=== PATIENT | female | born 1960 | race African-American/Black ===

== ENCOUNTER 2017-06-26 18:10 | Emergency (ER) | payer BC ==
[~2017-06-26] VITALS: Ht 165.1 cm; Wt 102.1 kg
[2017-06-26] MEDS ORDERED: ACETAMINOPHEN 500 MG TABLET PO ONE (19:15)
[2017-06-26] MEDS ORDERED: IV NORMAL SALINE 1000ML BAG 1,000 ML IV ONE (19:15)
[2017-06-26 19:44] LABS: BASO # 0.1 x10^3/uL (0.0-0.2); BASO % 1 % (0-3); EOS % 0 % (0-3); HEMATOCRIT 40.2 % (36.0-47.0); HEMOGLOBIN 13.5 g/dL (12.0-15.5); LYMPH # 0.9 x10^3/uL (1.0-4.8); LYMPH % 9 % (24-48); MEAN CORPUSCULAR HEMOGLOBIN 29 pg (25-35); MEAN CORPUSCULAR HGB CONC 34 g/dL (31-37); MEAN CORPUSCULAR VOLUME 85 fL (79-100); MONO % 8 % (0-9); NEUT % 83 % (31-73); PLATELET COUNT 313 x10^3/uL (140-400); RED BLOOD COUNT 4.73 x10^6/uL (3.50-5.40); RED CELL DISTRIBUTION WIDTH 14.7 % (11.5-14.5); WHITE BLOOD COUNT 9.5 x10^3/uL (4.0-11.0)
--- NOTE | 2017-06-26 19:51 | PHYS DOC ---
Past Medical History Past Medical History: No Pertinent History Past Surgical History: Hysterectomy Alcohol Use: Occasionally Drug Use: None Adult General Chief Complaint Chief Complaint: FEVER HPI HPI Patient is a 57 year old female who presents with 2 days of multiple loose watery stools, states any time she takes anything by mouth she'll stool. She gets crampy abdominal pain relieved with each bowel movements. She denies any recent antibiotics. Patient arrives with a fever, she took ibuprofen yesterday. She is tolerating fluids without difficulty other than it goes straight through her. She denies any nausea or vomiting, no chest pain or cough. Pt is otherwise healthy Review of Systems Review of Systems Constitutional: Denies fever or chills [] Eyes: Denies change in visual acuity, redness, or eye pain [] HENT: Denies nasal congestion or sore throat [] Respiratory: Denies cough or shortness of breath [] Cardiovascular: Denies chest pain GI: per hpi, denies blood in stool : Denies dysuria or hematuria [] Musculoskeletal: Denies back pain or joint pain [] Integument: Denies rash or skin lesions [] Neurologic: Denies headache, focal weakness or sensory changes [] Current Medications Current Medications Current Medications Medications (Trade) Dose Ordered Sig/Danny Start Time Stop Time Status Last Admin Dose Admin Acetaminophen (Tylenol) 1,000 mg 1X ONCE 06/26/17 19:15 06/26/17 19:18 DC 06/26/17 19:49 1,000 MG Loperamide HCl (Imodium) 4 mg 1X ONCE 06/26/17 21:00 06/26/17 21:03 DC 06/26/17 21:00 4 MG Sodium Chloride 1,000 ml @ 1,000 mls/hr 1X ONCE 06/26/17 19:15 06/26/17 20:14 DC 06/26/17 19:15 1,000 MLS/HR Allergies Allergies Allergies Coded Allergies Type Severity Reaction Last Updated Verified No Known Drug Allergies 06/26/17 No Physical Exam Physical Exam Constitutional: Well developed, well nourished, no acute distress, non-toxic appearance. [] HENT: Normocephalic, atraumatic, bilateral external ears normal, oropharynx moist, no oral exudates, nose normal. [] Eyes: PERRLA, EOMI, conjunctiva normal, no discharge. [] Neck: Normal range of motion, no tenderness, supple, no stridor. [] Cardiovascular:Heart rate tachy with regular rhythm, no murmur [] Lungs & Thorax: Bilateral breath sounds clear to auscultation , no wheeze, crackles or rhonchi Abdomen: Bowel sounds normal, soft, no tenderness, no masses, no pulsatile masses. no distention Skin: Warm, dry, no erythema, no rash. [] Back: No tenderness, no CVA tenderness. [] Extremities: No tenderness, no cyanosis, no clubbing, ROM intact, no edema. [] Neurologic: Alert and oriented X 3, normal motor function, normal sensory function, no focal deficits noted. [] Current Patient Data Vital Signs Vital Signs Date Time Temp Pulse Resp B/P (MAP) Pulse Ox O2 Delivery O2 Flow Rate FiO2 06/26/17 20:35 80 18 128/73 (91) 99 Room Air 06/26/17 18:35 100.5 100.5 Lab Values Laboratory Tests Test 06/26/17 19:25 White Blood Count 9.5 x10^3/uL (4.0-11.0) Red Blood Count 4.73 x10^6/uL (3.50-5.40) Hemoglobin 13.5 g/dL (12.0-15.5) Hematocrit 40.2 % (36.0-47.0) Mean Corpuscular Volume 85 fL (79-100) Mean Corpuscular Hemoglobin 29 pg (25-35) Mean Corpuscular Hemoglobin Concent 34 g/dL (31-37) Red Cell Distribution Width 14.7 % (11.5-14.5) H Platelet Count 313 x10^3/uL (140-400) Neutrophils (%) (Auto) 83 % (31-73) H Lymphocytes (%) (Auto) 9 % (24-48) L Monocytes (%) (Auto) 8 % (0-9) Eosinophils (%) (Auto) 0 % (0-3) Basophils (%) (Auto) 1 % (0-3) Neutrophils # (Auto) 7.8 x10^3uL (1.8-7.7) H Lymphocytes # (Auto) 0.9 x10^3/uL (1.0-4.8) L Monocytes # (Auto) 0.7 x10^3/uL (0.0-1.1) Eosinophils # (Auto) 0.0 x10^3/uL (0.0-0.7) Basophils # (Auto) 0.1 x10^3/uL (0.0-0.2) Sodium Level 134 mmol/L (136-145) L Potassium Level 3.6 mmol/L (3.5-5.1) Chloride Level 99 mmol/L (98-107) Carbon Dioxide Level 24 mmol/L (21-32) Anion Gap 11 (6-14) Blood Urea Nitrogen 6 mg/dL (7-20) L Creatinine 0.9 mg/dL (0.6-1.0) Estimated GFR (Cockcroft-Gault) 78.1 BUN/Creatinine Ratio 7 (6-20) Glucose Level 106 mg/dL (70-99) H Lactic Acid Level 1.3 mmol/L (0.4-2.0) Calcium Level 8.1 mg/dL (8.5-10.1) L Total Bilirubin 0.5 mg/dL (0.2-1.0) Aspartate Amino Transferase (AST) 20 U/L (15-37) Alanine Aminotransferase (ALT) 22 U/L (14-59) Alkaline Phosphatase 85 U/L (46-116) Total Protein 7.9 g/dL (6.4-8.2) Albumin 2.9 g/dL (3.4-5.0) L Albumin/Globulin Ratio 0.6 (1.0-1.7) L Laboratory Tests 06/26/17 19:25 Laboratory Tests 06/26/17 19:25 EKG EKG [] Radiology/Procedures Radiology/Procedures [] Course & Med Decision Making Course & Med Decision Making Pertinent Labs and Imaging studies reviewed. (See chart for details) Pt given PO Tylenol, 1 L NS bolus, labs/ua/lactic acid ordered. Stool studies ordered. Pt feeling improved, 1 stool provided, loperamide given, return precautions given and pt dc'd with loperamide, push fluids. DX: Diarrhea, Fever Dragon Disclaimer Dragon Disclaimer This electronic medical record was generated, in whole or in part, using a voice recognition dictation system. Departure Departure Disposition: 01 HOME, SELF-CARE Condition: STABLE Referrals: SHI FALK (PCP) Scripts Loperamide Hcl (LOPERAMIDE) 2 Mg Tablet 2 MG PO after loose stool Y for DIARRHEA, #16 TAB up to 16 stools per day Prov: LAST LANCE MD 06/26/17 LAST LANCE MD Jun 26, 2017 19:51
[2017-06-26 19:55] LABS: CALCIUM 8.1 mg/dL (8.5-10.1); CREATININE 0.9 mg/dL (0.6-1.0); GFR 78.1; POTASSIUM 3.6 mmol/L (3.5-5.1)
[2017-06-26 20:01] LABS: ALBUMIN 2.9 g/dL (3.4-5.0); ALBUMIN/GLOBULIN RATIO 0.6 (1.0-1.7); TOTAL BILIRUBIN 0.5 mg/dL (0.2-1.0); TOTAL PROTEIN 7.9 g/dL (6.4-8.2)
[2017-06-26 20:35] VITALS: BP 128/73
[2017-06-26] MEDS ORDERED: LOPE2TAB27 PO (20:59)
[2017-06-26] MEDS ORDERED: LOPERAMIDE 2 MG CAPSULE PO ONE (21:00)
== END 2017-06-26 21:05 | disposition home or self-care (01) ==
LOC: ER 18:10
DX: R19.7 Diarrhea, unspecified (principal); R50.9 Fever, unspecified; Z90.710 Acquired absence of both cervix and uterus
CPT/HCPCS: 36415; 80053; 83605; 85025; 87045; 87324; 96360; 99284; J7030; 87177

== ENCOUNTER 2022-01-04 09:29 | Emergency (ER) | payer BC ==
[~2022-01-04] VITALS: Ht 165.1 cm; Wt 100.0 kg
[~2022-01-04 09:29] MED LIST: LOPE2TAB27 PO
--- NOTE | 2022-01-04 09:33 | PHYS DOC ---
Past Medical History Past Medical History: No Pertinent History Past Surgical History: Hysterectomy Smoking Status: Current Every Day Smoker Alcohol Use: Occasionally Drug Use: None General Adult EDM: Chief Complaint: SHORTNESS OF BREATH HPI: HPI: Patient is a 61 year old female who presents with several days of cough, dyspnea and wheezing. She reports clear yellow sputum production. She denies fevers or chills. She denies chest pain. She denies dizziness, diaphoresis. She denies lower extremity pain or swelling. She denies nausea or vomiting. She denies abdominal pain. She does report the symptoms get worse with exertion. She is a smoker. She reports that once a year she gets "bronchitis." She has not reportedly been definitively diagnosed with any sort of pulmonary disease, COPD or chronic bronchitis. She also has markedly elevated blood pressure here, she reports that she normally has blood pressure readings in the 180s or 170s systolic. She reports that she does not like to go to her primary care physician because she does not like them, so she chooses often not to go. She has not ever been started on any medications for hypertension. She is not vaccinated as September 17 nor is she vaccinated against influenza. She works as a school cafeteria head cook. No prolonged immobilization or travel history. No recent hospitalization within the last 90 days. She and her daughter are both relatively argumentative. The patient admits that she often "waits until it is too late" to seek medical care when she has issues like this. Her daughter ultimately reports that she has been frustrated with her mother and has been trying to get her to seek care or go see her physician for quite some time. Both the daughter and the patient are frustrated at me when I ask about her history of hypertension or other past medical history what medication she is taking or what medication she has been recommended or prescribed. Review of Systems: Review of Systems: Constitutional: Denies fever or chills. [] HENT: Mild nasal congestion, denies sore throat or voice changes Respiratory: Cough with yellow sputum production, dyspnea, wheezing. No hemoptysis reported Cardiovascular: Denies chest pain or edema. [] GI: Denies abdominal pain, nausea, vomiting, diarrhea Musculoskeletal: Denies back pain or joint pain. [] Integument: Denies rash. [] Neurologic: Denies headache, focal weakness or sensory changes. [] Psychiatric: Anxiety and agitation as it pertains to current clinical condition Heart Score: C/O Chest Pain: No Risk Factors: Risk Factors: DM, Current or recent (<one month) smoker, HTN, HLP, family history of CAD, obesity. Risk Scores: Score 0 - 3: 2.5% MACE over next 6 weeks - Discharge Home Score 4 - 6: 20.3% MACE over next 6 weeks - Admit for Clinical Observation Score 7 - 10: 72.7% MACE over next 6 weeks - Early Invasive Strategies Allergies: Allergies: Allergies Coded Allergies Type Severity Reaction Last Updated Verified No Known Drug Allergies 06/26/17 No Physical Exam: PE: Constitutional: Well developed, well nourished, no acute distress, non-toxic appearance. [] HENT: Normocephalic, atraumatic Eyes: Sclera are clear and anicteric Neck: Normal range of motion, no tenderness, supple, no stridor. Trachea midline, no JVD Cardiovascular:Heart rate regular rhythm, 2 radial and +2 posterior tibial pulses bilaterally. Lungs & Thorax: Inspiratory and expiratory wheezing bilaterally. Mild tachypnea. No retractions. Coarse rhonchi bilaterally, clear with coughing. No rales. No stridor. Speaks in full and clear sentences. No cyanosis. Abdomen: Abdomen is obese, soft, nondistended, nontender Skin: Warm, dry, no erythema, no rash. [] Back: No tenderness, no CVA tenderness. [] Extremities: No tenderness, no cyanosis, no clubbing, ROM intact, no edema. No calf tenderness. Neurologic: She is awake, alert, oriented x3, no facial asymmetry, gait is steady, gross motor function is normal, speech is fluent Psychologic: Anxious, manifests agitation and frustration EKG: EKG: [] Radiology/Procedures: Radiology/Procedures: IMAGING REPORT Signed PATIENT: GAYLA BOLANOS DACCOUNT: [id number] : 1960 LOCATION: ER AGE: 61 SEX: F EXAM STATUS: REG ER ORD. PHYSICIAN: DILLON VANEGAS DO REASON: cough, dyspnea PROCEDURE: PORTABLE CHEST 1V Single view of the chest. 01/04/2022 9:45 AM Indication: Cough, dyspnea. Comparison: None available Findings: There is mild right medial basilar atelectasis or infiltrate. No pneumothorax or effusion is seen. Heart size is top normal. Bony thorax is intact. IMPRESSION: Mild right medial basilar atelectasis or infiltrate. Consider follow-up two-view chest radiograph Electronically signed by: Gabo Zaidi MD (01/04/2022 10:08 AM) [id number] DICTATED and SIGNED BY: GABO ZAIDI MD DATE: 01/04/22 [id number] Course & Med Decision Making: Course & Med Decision Making Pertinent Labs and Imaging studies reviewed. (See chart for details) The patient is given a DuoNeb and albuterol neb. IV Solu-Medrol given. She is feeling much better. Lung exam is improved. She manifests no hypoxia on room air. Tachypnea appears to be resolved. She subjectively feels much better. There was some significant difficulty in obtaining labs. The patient had refused further sticks. Ultimately most labs were able to be obtained, but the patient insisted that her IV be removed. She does not want to stay for any further evaluation or treatment, adamantly refuses admission or further invasive exams. She wants to go home. The patient did ultimately calm down after further discussion with me. I did explain that I asked these questions simply because I am very concerned about her health and wellbeing. I explained the dangerousness of continued smoking, with clinical findings of obstructive pulmonary disease, and with admitted recurrent episodes of pneumonia and "bronchitis" diagnosed over many years. I also explained that dangers of end organ damage including stroke, [place], congestive heart failure, kidney failure with sustained and uncontrolled prolonged hypertension over time. She said that she does not like her doctor, she wants to see another one. I gave her a multitude of outpatient resources so that she may establish care with a new primary care physician. She does not routinely take any bronchodilator treatments despite having frequent episodes of wheezing. I did prescribe her albuterol for discharge. She will be given steroids and antibiotics to for treatment of community-acquired pneumonia. She is given a dose of IV Rocephin and p.o. azithromycin here prior to discharge. The patient and her daughter apologized for their previous behavior. I apologized for any misunderstanding or frustration. I explained that I am simply concerned about her wellbeing. I strongly encouraged her to quit smoking. I have encouraged her to seek primary care services, as well as outpatient pulmonary consultation. She is given information for this purpose. She feels much better, insists on going home, refuses to stay for further evaluation. She will be discharged home. I gave her very strict return precautions. She verbalized understanding of these. She requested a work note for today and tomorrow, this was provided to her. I also explained that I will prescribe hydrochlorothiazide for her to initiate treatment for hypertension. She is amenable to taking this. She is discharged in stable and improved condition. Wilmaon Disclaimer: Rosanna Disclaimer: This electronic medical record was generated, in whole or in part, using a voice recognition dictation system. Departure Departure Impression: Primary Impression: Acute bronchospasm Additional Impressions: Community acquired pneumonia Hypertension Qualified Codes: I10 - Essential (primary) hypertension Disposition: HOME / SELF CARE / HOMELESS Condition: STABLE Referrals: SHI FALK (PCP) PATRICK MCGUIRE MD Patient Instructions: Bronchospasm, Adult, Chronic Asthmatic Bronchitis, Hypertension, Pneumonia, Adult Additional Instructions: Please return to the ER immediately for severe chest pain, more severe shortness of breath, if you have any refractory wheezing, if you start feeling very dizzy, passing out, if you develop any severe swelling in your legs, face or abdomen, if you develop uncontrolled vomiting, dehydration or weakness or any other concerns. Please contact your primary care physician for follow-up. I recommend smoking cessation as well. Take the antibiotics and prescription medications as directed. Please also follow-up with an outpatient insurance underwriter, because you may need some further testing and evaluation for any chronic lung disease process. Scripts Prednisone (PREDNISONE) 50 Mg Tablet 1 TAB PO DAILY for 5 Days, #5 TAB Prov: DILLON VANEGAS DO 01/04/22 Cefdinir (CEFDINIR) 300 Mg Capsule 1 CAP PO BID for 7 Days, #14 CAP Prov: DILLON VANEGAS DO 01/04/22 Azithromycin (AZITHROMYCIN TABLET) 250 Mg Tablet 250 MG PO DAILY for ANTI-BIOTIC for 4 Days, #4 TAB 0 Refills take next dose on 01/05/22 Prov: DILLON VANEGAS DO 01/04/22 Albuterol Sulfate (VENTOLIN HFA INHALER) 18 Gm Hfa.aer.ad 2 PUFF INH Q4HRS for wheezing, #1 EACH 2 Refills Prov: DILLON VANEGAS DO 01/04/22 Hydrochlorothiazide (HYDROCHLOROTHIAZIDE TABLET ) 25 Mg Tablet 25 MG PO DAILY for DIURETIC, #30 TAB 1 Refill Prov: DILLON VANEGAS DO 01/04/22 DILLON VANEGAS DO Jan 04, 2022 09:32
[2022-01-04] MEDS ORDERED: methylPREDNISolone SOD SUCC PF 125 MG/2 ML VIAL. IV ONE (09:45)
[2022-01-04] MEDS ORDERED: IPRATRPIUM/ALBUTEROL 0.5/2.5MG 3 ML NEBU. NEB ONE (09:45)
--- NOTE | 2022-01-04 10:10 | RAD ---
Single view of the chest. 01/04/2022 9:45 AM Indication: Cough, dyspnea. Comparison: None available Findings: There is mild right medial basilar atelectasis or infiltrate. No pneumothorax or effusion i s seen. Heart size is top normal. Bony thorax is intact. IMPRESSION: Mild right medial basilar atelectasis or infiltrate. Consider follow-up two-view chest ra diograph Electronically signed by: Gabo Ramos MD (01/04/2022 10:08 AM) [id number]
[2022-01-04] MEDS ORDERED: AZITHROMYCIN 250 MG TABLET. PO ONE (11:00)
[2022-01-04] MEDS ORDERED: cefTRIAXone IV Push 1 GM VIAL. IVP ONE (11:00)
[2022-01-04 11:12] LABS: CALCIUM 8.9 mg/dL (8.5-10.1); CREATININE 0.9 mg/dL (0.6-1.0); POTASSIUM 4.2 mmol/L (3.5-5.1)
[2022-01-04 11:18] LABS: ALBUMIN 3.2 g/dL (3.4-5.0); ALBUMIN/GLOBULIN RATIO 0.7 (1.0-1.7); MAGNESIUM 2.1 mg/dL (1.8-2.4); TOTAL BILIRUBIN 0.4 mg/dL (0.2-1.0); TOTAL PROTEIN 7.9 g/dL (6.4-8.2)
[2022-01-04 12:21] LABS: BASO # 0.1 x10^3/uL (0.0-0.2); BASO % 1 % (0-3); EOS # 0.3 x10^3/uL (0.0-0.7); EOS % 4 % (0-3); HEMATOCRIT 39.5 % (36.0-47.0); HEMOGLOBIN 12.9 g/dL (12.0-15.5); LYMPH # 2.5 x10^3/uL (1.0-4.8); LYMPH % 34 % (24-48); MEAN CORPUSCULAR HEMOGLOBIN 29 pg (25-35); MEAN CORPUSCULAR HGB CONC 33 g/dL (31-37); MEAN CORPUSCULAR VOLUME 89 fL (79-100); MONO # 0.6 x10^3/uL (0.0-1.1); MONO % 8 % (0-9); NEUT % 53 % (31-73); PLATELET COUNT 335 x10^3/uL (140-400); RED BLOOD COUNT 4.43 x10^6/uL (3.50-5.40); RED CELL DISTRIBUTION WIDTH 14.2 % (11.5-14.5); WHITE BLOOD COUNT 7.5 x10^3/uL (4.0-11.0)
[2022-01-04 12:30] LABS: INFLUENZA A PATIENT NEGATIVE (NEGATIVE); INFLUENZA B PATIENT NEGATIVE (NEGATIVE)
[2022-01-04] MEDS ORDERED: ALBUTEROL SULFATE 2.5 MG/3 ML NEBU. NEB ONE (12:30)
[2022-01-04 12:34] VITALS: BP 174/93
[2022-01-04] MEDS ORDERED: CEFD300C PO (13:04)
[2022-01-04] MEDS ORDERED: VENTOLIN HFA18 GM INH (13:04)
[2022-01-04] MEDS ORDERED: AZIT250T6 PO (13:04)
[2022-01-04] MEDS ORDERED: PRED50TA PO (13:04)
[2022-01-04] MEDS ORDERED: HYDR-2145 PO (13:04)
[2022-01-04 13:22] LABS: CLARITY,URINE CLEAR; COLOR,URINE YELLOW
[2022-01-04 13:23] LABS: BILIRUBIN,URINE NEGATIVE (NEG); NITRITE,URINE NEGATIVE (NEG); PH,URINE 6.5 (<5.0-8.0); PROTEIN,URINE NEGATIVE (NEG-TRACE); UROBILINOGEN,URINE 0.2 mg/dL (0.2 mg/dL)
[2022-01-04 13:24] LABS: BACTERIA,URINE FEW /HPF (0-FEW); RBC,URINE 0 /HPF (0-2)
== END 2022-01-04 13:11 | disposition home or self-care (01) ==
LOC: ER 09:29
DX: J18.9 Pneumonia, unspecified organism (principal); J98.01 Acute bronchospasm; Z20.822 Contact with and (suspected) exposure to COVID-19; I10 Essential (primary) hypertension; F17.200 Nicotine dependence, unspecified, uncomplicated; Z90.710 Acquired absence of both cervix and uterus
CPT/HCPCS: 36415; 71045; 80053; 81001; 83735; 83880; 85025; 87040; 87086; 87428; 94640; 96374; 96375; 99285; J0696; J2930; J7613